=== PATIENT | female | born 1980 | race African-American/Black ===

== ENCOUNTER 2017-08-09 16:12 | Emergency (ER) | payer OTHER ==
[~2017-08-09] VITALS: Ht 162.6 cm; Wt 106.6 kg
[2017-08-09 16:48] VITALS: BP 129/79
== END 2017-08-09 20:16 | disposition home or self-care (01) ==
LOC: ER 16:12
DX: M72.2 Plantar fascial fibromatosis (principal)
CPT/HCPCS: 73630

== ENCOUNTER 2017-10-02 21:58 | Emergency (ER) | payer OTHER ==
[~2017-10-02] VITALS: Ht 165.1 cm; Wt 106.6 kg
[2017-10-02 22:53] VITALS: BP 128/90
== END 2017-10-03 02:36 | disposition left against medical advice (07) ==
LOC: ER 21:58
DX: R21 Rash and other nonspecific skin eruption (principal); Z53.21 Procedure and treatment not carried out due to patient leaving prior to being seen by health care provider